=== PATIENT | female | born 1980 | race Caucasian/White ===

== ENCOUNTER 2018-04-25 10:57 | Outpatient (REF) | payer MEDICAID, SELFPAY ==
[2018-04-27 14:52] LABS: Chlamydia Result Negative; GC Result Negative; Specimen Description CERVIX
== END 2018-04-25 11:17 ==
LOC: NCHCN 10:57
PROVIDERS: PCP Family Medicine; Visit Provider Nurse Practitioner Family
DX: N89.8 Other specified noninflammatory disorders of vagina (principal); M54.9 Dorsalgia, unspecified; Z11.3 Encounter for screening for infections with a predominantly sexual mode of transmission
CPT/HCPCS: 87491; 87591; 87480; 87510; 87660

== ENCOUNTER 2019-10-27 13:24 | Emergency (ER) | payer OTHER, SELFPAY ==
[2019-10-27] VITALS (12 sets, daily range): BP systolic 105–142; BP diastolic 72–92; PULSE 72–92; RESP 18; TEMP 36.6; O2SAT 94–99
--- NOTE | 2019-10-27 13:55 | ED.GENADUL_ITS ---
Discharge Plan Disposition Patient Disposition: HOME Condition: Stable Discharge Details Chief Complaint: Nk/Back Pain Clinical Impression: Acute left-sided back pain Primary Care Provider: Tone Alcaraz ED Provider: Cristhian Newell Home Meds and New Rx's Prescriptions: New diazepam [Valium] 2 mg tablet 2 mg PO BID PRN (Reason: muscle spasm) Qty: 8 RF: 0 Continued acetaminophen [Acetaminophen Extra Strength] 500 MG tablet 1,000 mg PO PRN PRNQty: 2 RF: 0 melatonin-pyridoxine (vit B6) [Melatonin (with B6)] 1 EACH tablet 5 mg PO PRN RF: 0 sumatriptan succinate [Imitrex] 50 MG tablet 50 mg PO BID PRN PRN (Reason: Headache) Qty: 5 RF: 0 ondansetron 8 MG tablet,disintegrating 8 mg PO PRN PRNRF: 0 amitriptyline 25 MG tablet 25 mg PO DAILY RF: 0 Discharge Instructions Instructions: Back Pain (ED) Additional Instructions: Please take ibuprofen over the counter. Take 600mg by mouth every 6 hours as needed for pain. Take Tylenol as prescribed. Use [id number] lidocaine patch. Apply to area of discomfort according to label. Please contact your primary care physician to arrange follow-up. Return to the ER for any worsening or new concerning symptoms. Stand Alone Forms: Work Release Referrals: Tone Alcaraz [Primary Care Provider] - Discharge Data Discharge Date/Time-TO BE ENTERED AT DEPARTURE: 10/27/19 15:51 Medical Decision Making 1410??38-year-old female here with atraumatic left mid to upper back pain persistent over the past 1 week. Patient is focally tender over her left paraspinal thoracic muscles. Pain is worse when she elevates and/or abducts her left arm. There is no rash or inflammatory changes. She is had no fever. Suspect muscle spasm. Plan to treat with Valium 5 mg orally and anti- inflammatory Toradol 30 mg IM. I also placed lidocaine patch. Patient does note that she is a smoker and intermittently has cough. Consider posterior rib fracture. Will obtain chest x-ray. --Chest x-ray interpreted by radiology: Negative, no evidence for acute bony abnormality, no evidence of acute cardiopulmonary disease. Patient was reassessed and noted significant improvement in discomfort, she was able to rest. Patient ambulated without difficulty. HPI General Mode of arrival: ambulatory . Date/Time Provider Initiated Documentation: 10/27/19 13:36 . Limitations to Documentation: no limitations . Information obtained by: patient . HPI Narrative: 38-year-old female presents with chief complaint of back pain. Patient notes left upper back pain that started about a week ago and has persisted. Feels like muscle spasm. Pain is worse with certain positions including twisting and with use of her left arm. Patient does not recall any specific injury. She does do a lot of heavy lifting at work. No associated fever. No shortness of breath. When she does take a deep breath pain seems to worsen. She has no chest pain. No abdominal pain. Patient has been using Tylenol as recent as this morning as well as lidocaine patch without significant relief. Patient has no associated bowel or bladder dysfunction. Related Data Home Medications Medication Instructions Recorded Confirmed acetaminophen [Acetaminophen Extra 1,000 mg PO PRN PRN #2 04/09/13 10/27/19 Strength] melatonin-pyridoxine (vit B6) 5 mg PO PRN 06/17/13 10/27/19 [Melatonin (with B6)] sumatriptan succinate [Imitrex] 50 mg PO BID PRN PRN #5 tab 11/11/14 10/27/19 amitriptyline 25 mg PO DAILY 01/31/17 10/27/19 ondansetron 8 mg PO PRN PRN 01/31/17 10/27/19 diazepam [Valium] 2 mg PO BID PRN #8 tab 10/27/19 Previous Rx's Medication Instructions Recorded sumatriptan succinate [Imitrex] 50 mg PO BID PRN PRN #5 tab 11/11/14 diazepam [Valium] 2 mg PO BID PRN #8 tab 10/27/19 Allergies Allergy/AdvReac Type Severity Reaction Status Date / Time Penicillins Allergy Severe Anaphylaxsi Unverified 10/27/19 15:38 s oxycodone AdvReac Nausea Unverified 10/27/19 15:38 oxycodone HCl AdvReac Nausea Unverified 10/27/19 15:38 [From OxyContin] General Stated Complaint: Nk/Back Pain IJEOMA: 3 Review of Systems All systems reviewed & are unremarkable except as noted in HPI and below Constitutional Constitutional: Denies fever(s) Cardiovascular Cardiovascular: Denies chest pain and Denies dyspnea Respiratory Respiratory: Denies dyspnea Gastrointestinal Gastrointestinal: Denies abdominal pain Musculoskeletal Musculoskeletal: Reports as per HPI Integumentary/Breasts Skin/Breast: Denies rash [facility] Medical History Migraine (Chronic) Social History Smoking/Tobacco Use Status: Current every day Tobacco Type: cigarettes Alcohol Intake: never Drug use: Never Substance use type: does not use Do you feel safe at home: Yes Do you feel safe in your relationship?: Yes Exam Const General: cooperative and no acute distress HENMT Mouth: moist mucous membranes Eyes Conjunctivae: normal conjunctivae Sclera: normal sclerae Neck Neck: trachea midline and supple Resp Auscultation: clear to auscultation bilaterally, no rales, no rhonchi and no wheezes Cardio Rate: regular rate and not tachycardic Rhythm: regular rhythm GI Palpation: soft and nontender Back/Spine/Pelvis Back: No erythema, No warmth and No ecchymosis Cervical Spine: cervical ROM normal and No cervical spinal tenderness Thoracic/Lumbar Spine: paraspinal tenderness (Left upper thoracic extending to the lower thoracic), No thoracic spinal tenderness and No lumbar spinal tenderness Skin General skin exam: no rashes or lesions noted Neuro General: patient alert, patient awake and tone normal Extrem General: no edema Other: Pain in her back is worse when she attempts to range her left shoulder Psych Appearance: grossly normal Mental Status: mental status grossly normal Course Vital Signs Vital signs: Vital Signs Temperature 36.6 C 10/27/19 13:29 Pulse 90 10/27/19 13:29 Respiratory Rate 18 10/27/19 13:29 Blood Pressure 142/92 H 10/27/19 13:29 Pulse Oximetry 98 10/27/19 13:29 Temperature 36.6 C 10/27/19 13:29 Temperature Source Skin 10/27/19 13:29 Pulse 90 10/27/19 13:29 Respiratory Rate 18 10/27/19 13:29 Respiratory Effort Non-Labored 10/27/19 13:35 Blood Pressure 142/92 H 10/27/19 13:29 Blood Pressure Position Sitting 10/27/19 13:29 Pulse Oximetry 98 10/27/19 13:29 Oxygen Delivery Method Room Air 10/27/19 13:29 Oxygen Flow Rate 0 10/27/19 13:29 Pain Level 9 10/27/19 13:29
[2019-10-27] MEDS: diazePAM 5 MG TAB PO (14:09)
[2019-10-27] MEDS: Ketorolac 30 MG/ML VIAL IM (14:09)
[2019-10-27] MEDS: Lidocaine 5% Patch 1 PATCH TP (14:09)
--- NOTE | 2019-10-27 14:27 | DI.RAD_ITS ---
EXAM: XR RIBS LT W PA LAT CHEST CLINICAL HISTORY: pain left back TECHNIQUE: 2D digital imaging was performed. COMPARISON: No exams were available for comparison FINDINGS: MEDIASTINUM: Normal. HEART: Normal. PULMONARY VASCULATURE: Normal. LUNGS: Clear. PLEURAL SPACE: No pleural effusion or pneumothorax. BONE:Normal. LEFT RIBS: Normal. OTHER FINDINGS:Normal. IMPRESSION: 1. No acute pulmonary findings. 2. Unremarkable left ribs. DATA REPOSITORY: RADIATION DOSE DELIVERED:
--- NOTE | 2019-10-27 14:52 | DI.VRAD_ITS ---
PROCEDURE INFORMATION: Exam: XR Left Ribs Exam date and time: 10/27/2019 2:19 PM Age: 38 years old Clinical indication: Other: Pain left back TECHNIQUE: Imaging protocol: XR Left ribs. Views: 2 views. COMPARISON: No relevant prior studies available. FINDINGS: The bony structures are in anatomic alignment. No fracture is present. No significant radiopaque foreign body is identified. The joint spaces are well maintained. IMPRESSION: No evidence of acute bony abnormality. PROCEDURE INFORMATION: Exam: XR Chest, 2 Views Exam date and time: 10/27/2019 2:19 PM Age: 38 years old Clinical indication: Other: Pain left back TECHNIQUE: Imaging protocol: XR of the chest Views: 2 views. COMPARISON: No relevant prior studies available. FINDINGS: The lung toribio are clear bilaterally. No focal pulmonary consolidation is present. The cardiac silhouette is within normal limits. The costophrenic angles are sharp. The bony structures appear unremarkable. IMPRESSION: No evidence of acute cardiopulmonary disease. Dictated and Authenticated by: Adan Moreno MD. Ordering:SHELLEY Morrow MD
== END 2019-10-27 15:51 | disposition home or self-care (01) ==
PROVIDERS: Emergency Provider Student in an Organized Health Care Education/Training Program; PCP Family Medicine
DX: M54.6 Pain in thoracic spine (principal)
CPT/HCPCS: 96372; 99284; 71046; 71100; J1885

== ENCOUNTER 2019-12-05 00:52 | Outpatient (CLI) | payer OTHER, SELFPAY ==
--- NOTE | 2019-12-05 | DI.US_ITS ---
EXAM: MG MAMMO DIAGNOSTIC BI CLINICAL HISTORY: BREAST LUMP OR MASS N63.0, LUMP RT LATERAL BREAST 10 O'CLOCK, FIBROCYSTIC TECHNIQUE: Mammograms were interpreted according to the usual protocol including computer analysis w [employer] CAD system, tomosynthesis and C-view imaging. COMPARISON: FINDINGS: Mammogram and right breast ultrasound are interpreted in conjunction. Patient reports questionable p alpable area of abnormality in the lateral aspect of the right breast. The breasts are heterogeneously dense. No dominant mass or clumped microcalcification is identified in either breast. No significant interval change in appearance comparison with previous mammogram of 2013 allowing for differences in technique. Right breast ultrasound shows no mass or cyst in the region of questionable palpable IMPRESSION: No specific evidence of malignancy at this time. Routine screening examinations are suggested at ye marvel intervals due to the family history of breast carcinoma. BI-RADS Category 1 - Negative Breast Density - Category C - Heterogeneously dense
== END 2019-12-05 01:12 ==
PROVIDERS: PCP Family Medicine; Visit Provider Family Medicine
DX: N63.12 Unspecified lump in the right breast, upper inner quadrant (principal); R92.2 Inconclusive mammogram
CPT/HCPCS: 76642; 77062; 77066; G0279

== ENCOUNTER 2020-04-16 01:13 | Outpatient (CLI) | payer OTHER, SELFPAY ==
--- NOTE | 2020-04-16 09:25 | DI.RAD_ITS ---
EXAM: XR KNEE LT 3V AP,LAT,RENATA CLINICAL HISTORY: ACUTE LT KNEE PAIN, M25.562. TECHNIQUE: 2D digital imaging was performed. COMPARISON: No exams were available for comparison FINDINGS: There is no evidence of fracture but there appears to be a joint effusion. No degenerative changes n or osseous lesions. No osteochondral defects evident. Bone density appears normal. IMPRESSION: Joint effusion. This may signify an internal derangement. Appropriate follow-up recommended. DATA REPOSITORY: RADIATION DOSE DELIVERED:
== END 2020-04-16 01:14 ==
LOC: DI 01:13
PROVIDERS: PCP Family Medicine; Visit Provider Family Medicine
DX: M25.562 Pain in left knee (principal); M25.462 Effusion, left knee
CPT/HCPCS: 73562

== ENCOUNTER 2020-04-24 15:18 | Outpatient (REF) | payer OTHER, SELFPAY ==
[2020-04-24 15:54] LABS: Crystals (BF) No Crystals seen
[2020-04-24 16:07] LABS: Clarity Cloudy; Mononuclear Cells 91 %; Nucleated Cells 772 uL (0); Polynuclear Cells 9 %
[2020-05-02 16:23] LABS: Misc Referral (MAYO) See Comments
== END 2020-04-24 15:19 | disposition home or self-care (01) ==
LOC: NCHCN 15:18
PROVIDERS: PCP Family Medicine; Visit Provider Family Medicine
DX: M25.562 Pain in left knee (principal)
CPT/HCPCS: 82945; 81373; 87070; 87205; 87476; 89051; 89060

== ENCOUNTER 2020-05-05 08:30 | Outpatient (REF) | payer OTHER, SELFPAY ==
[2020-05-05 15:38] LABS: Hemoglobin A1C 6.3 % (<5.7)
[2020-05-05 15:50] LABS: CREATININE 0.7 mg/dL (0.55-1.02); Calculated LDL 121 mg/dL (<100); Cholesterol 178 mg/dL (<200); HDL Cholesterol 44 mg/dL (40-60); Triglyceride 66 mg/dL (<150)
== END 2020-05-05 08:31 | disposition home or self-care (01) ==
LOC: NCHCN 08:30
PROVIDERS: PCP Family Medicine; Visit Provider Family Medicine
DX: Z00.00 Encounter for general adult medical examination without abnormal findings (principal); Z13.1 Encounter for screening for diabetes mellitus; M25.562 Pain in left knee; Z13.220 Encounter for screening for lipoid disorders
CPT/HCPCS: 80061; 82565; 83036

== ENCOUNTER 2021-01-01 22:22 | Outpatient (REF) | payer OTHER, SELFPAY ==
[2021-01-03 09:26] LABS: COVID-19 RT-PCR UVMMC Result Negative (Negative)
== END 2021-01-01 22:23 | disposition home or self-care (01) ==
LOC: LBN 22:22
PROVIDERS: PCP Family Medicine; Visit Provider Internal Medicine
DX: Z20.822 Contact with and (suspected) exposure to COVID-19 (principal)
CPT/HCPCS: U0003

== ENCOUNTER 2022-03-24 17:11 | Outpatient (REF) | payer OTHER, SELFPAY ==
--- NOTE | 2022-03-24 16:00 | PAPFT_PTH ---
PATIENT: Zulema Melgar LOC: [facility] U#:[id number] AGE/SX: 41/F ROOM: RE03/24/[address]: Tone Alcaraz : 1980 BED: DIS: 03/24/2022 SPEC #: [id number] RECD: 03/24/22 19:06 STATUS: GUANAKO REQ #: [id number] NIKKI: 03/24/22 16:[address]: Tone Alcaraz DEPT: [facility] Cytology RECD BY: Fatuma Guerra Tissues: 1 - CX/ENDOCX FOR PAP SMEARS Procedures: PAP THIN PREP/UVM Screening HPV DNA PROBE Comments: [id number]
== END 2022-03-24 17:12 | disposition home or self-care (01) ==
LOC: LBN 17:11
PROVIDERS: PCP Family Medicine; Visit Provider Family Medicine
DX: Z12.4 Encounter for screening for malignant neoplasm of cervix (principal); Z11.51 Encounter for screening for human papillomavirus (HPV)
CPT/HCPCS: 88142; 87624

== ENCOUNTER 2023-04-29 20:16 | Outpatient (REF) | payer OTHER, SELFPAY | END 2023-04-29 20:17 | disposition home or self-care (01) | LOC: NCHCN 20:16 | PROVIDERS: PCP Family Medicine; Referring Provider Family Medicine; Visit Provider Family Medicine | DX: Z13.1 Encounter for screening for diabetes mellitus (principal) | CPT/HCPCS: 83036 ==

== ENCOUNTER → 2023-08-02 01:50 | Outpatient (CLI) | payer OTHER, SELFPAY ==
--- NOTE | 2023-08-02 07:38 | DI.MAMMO_ITS ---
Exam(s) MAMMO SCREENING EXAM: MAMMO SCREENING CLINICAL HISTORY: SCREENING, Z12.31. TECHNIQUE: Bilateral full field digital CC and MLO mammographic images were obtained with 3D tomosyn thesis and utilizing computer aided detection (CAD). COMPARISON: Prior mammograms were reviewed. Last mammogram was November 2019. FINDINGS: There has been no significant change in the appearance and distribution of the fibroglandular tissue. There are no new spiculated masses nor malignant appearing microcalcification groups. There is no significant architectural distortion nor skin thickening-retraction. IMPRESSION: No radiographic evidence of malignancy. BI-RADS Category 1 - Negative Breast Density - Category C - Heterogeneously dense Breast density Category C or D implies that the patient has dense breast tissue. Dense breast tissue can make it harder to find cancer on a mammogram. Dense breast tissue is also associated with an incr eased risk of breast cancer. This information about the result of the mammogram report was provided to the patient to raise their awareness. Use this report when you speak with the patient about their risks for breast cancer, which includes their family history. At that time, you may recommend additional screening tests (Ultrasoun d or MRI) as these tests may add significant information. A negative radiographic report should not delay biopsy if a dominant or clinically suspicious mass is present. Up to ten percent of cancers are not identified on mammography. A negative report may reinforce clinical impression. Adenosis and dense breasts may obscure an underlying neoplasm. False positive reports average 6 to 10%. Patient will receive a letter notifying them of these results.
== END ==
PROVIDERS: PCP Family Medicine; Visit Provider Family Medicine
DX: Z12.31 Encounter for screening mammogram for malignant neoplasm of breast (principal); R92.333 Mammographic heterogeneous density, bilateral breasts
CPT/HCPCS: 77063; 77067

== ENCOUNTER 2024-07-19 15:05 | Outpatient (REF) | payer OTHER, SELFPAY | END 2024-07-19 15:06 | disposition home or self-care (01) | LOC: LBN 15:05 | PROVIDERS: PCP Family Medicine; Visit Provider Physician Assistant Medical | DX: N39.0 Urinary tract infection, site not specified (principal); B96.29 Other Escherichia coli [E. coli] as the cause of diseases classified elsewhere; R82.89 Other abnormal findings on cytological and histological examination of urine | CPT/HCPCS: 87077; 87086; 87186 ==

== ENCOUNTER 2024-09-25 12:18 | Outpatient (REF) | payer OTHER, SELFPAY ==
[2024-09-25 21:57] LABS: RBC 20-50 HPF (0-2); WBC >50 HPF (0-5)
[2024-09-25 21:58] LABS: C & S Indicated? Yes
== END 2024-09-25 12:19 | disposition home or self-care (01) ==
LOC: LBN 12:18
PROVIDERS: PCP Family Medicine; Visit Provider Physician Assistant Medical
DX: N39.0 Urinary tract infection, site not specified (principal)
CPT/HCPCS: 87077; 81015; 87086; 87186